=== PATIENT | male | born 1940 | race Caucasian/White ===

== ENCOUNTER 2016-05-28 09:30 | Inpatient (IN) | payer MEDICARE ==
--- NOTE | 2016-05-28 08:37 | HP ---
DATE OF CLINIC: 05/22/2016 ROSALES ROBLES : 1940 PLANNED PROCEDURE: Right Total Hip Arthroplasty Revision DATE OF SURGERY: May 28, 2016 SURGEON: Theo Sanchez M.D. PCP: Dr. Aleyda Mata HISTORY OF PRESENT ILLNESS Rosales Robles is a 76 year old male. * Medication list reviewed with patient allergy list reviewed with patient. 76-year-old male seen today preoperatively for upcoming right total hip acetabular revision. Patient is a patient of Dr. Sanchez's who underwent right hip revision of acetabulum on 10/23/15 for polyethylene wear. Unfortunately, he had 2 episodes; one small fall and another when he got his leg caught causing a rather significant increase in pain for about 2 days. It was noticed per x-ray series that the acetabulum has failed and is now rotated. He is here today preoperatively for upcoming revision of acetabulum. Dr. 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 Radiographs were obtained after a visit with Anders which I reviewed and I called the patient and his family back for discussion of this today. I saw him at the 6 week postop tab. At that time he was doing well. Subsequent to that he has had 2 episodes; one where he fell off of a rollator onto his buttocks and right side and a 2nd when he caught his leg on a car door with significant hip discomfort. He is ambulating with a cane. He feels that his strength is improved, although at times continues to struggle. He still feels that he is "much better off than before surgery". After discussion and review of treatment options and findings on exam, including operative and non-operative management, he has elected to proceed with revision arthroplasty and presents today preoperatively. He has had no recent illnesses. CURRENT MEDICATION * Amoxicillin 500 MG Tablet take 4 tabs orally 1 hour prior to all dental procedures due to joint replacement, 30 days, 2 refills * LamoTRIgine ER 250 MG Tablet Extended Release 24 Hour 1 once a day 0 days, 0 refills * LORazepam 0.5 MG Tablet as needed 1/2 to 1mg prn, 0 days, 0 refills * Lovastatin 20 MG Tablet once a day 0 days, 0 refills * Naproxen 500 MG Tablet 1 twice a day 0 days, 0 refills * Sertraline HCl 100 MG Tablet as directed 150mg-200mg daily, 0 days, 0 refills PAST MEDICAL/SURGICAL HISTORY Reported: Medical: Cholesterol problems. Stomach problems ulcers, bladder disease, joint problems Arthritis, a fracture Toe fracture 1984, cancer skin cancer, Reported numbness, Reported tingling, renal history, history of Arthritis, Depression, Vertigo, and Asthma. Surgical / Procedural: Surgical / procedural history scaling node 70 lung biopsy 70 lung biopsy 1968, removal of basal cell cancers 2008, scaling nodes removed 1968, plantar warts removed 1952, replacement of a hip Left hip 2004, Right hip 1993 or 1994, Right hip revision 10/23/[address] Sanchez, Appendectomy 1977, and Cholecystectomy 1995. Diagnoses: Osteoporosis. Depression Sarcoidosis 1968, acid reflux, gastritis, Sleep apnea. SOCIAL HISTORY Behavioral: Caffeine use and non-smoker quit smoking stopped smoking in 09/12/1994 after smoking half pack a day for 20 years off and on. Smoking status: Former smoker. Work: Occupation Retired. ALLERGIES * Dairy Products * Reglan Reaction: Nausea/Vomiting/Diarrhea * Sulfa Drugs Reaction: Skin Rashes/Hives FAMILY HISTORY Father at age 53 heart attack Mother at age 72 in sleep 1 children living 1 children REVIEW OF SYSTEMS Systemic: No fever and no recent weight change. Head: No head symptoms. Cardiovascular: No cardiovascular symptoms. Pulmonary: No pulmonary symptoms. Gastrointestinal: No gastrointestinal symptoms. Skin: No skin lesions and no rash. PHYSICAL FINDINGS * Vitals taken 05/22/2016 10:53 am BP-Sitting R 153/80 mmHg BP Cuff Size Regular Pulse Rate-Sitting 74 bpm Temp-Oral 97.6 F Height 67 in Weight 190 lbs Body Mass Index 29.8 kg/m2 Body Surface Area 1.98 m2 Pain Level 5 Ears, Nose, Throat: * ENT: normal. Lungs: * Clear to auscultation No wheezing, rhonchi. Cardiovascular: Heart Rate and Rhythm: * Normal Without murmur. Abdomen: * Normal Soft NT. Neurological: Motor: * Dominant Hand = Right Hand. Orthopedic exam of the lower extremity is unchanged; well-healed incision, motion is unchanged from his last exam with Dr. Sanchez. Please see his following note: He has significant asymmetric leg lengths. He has no tenderness about the hip. Motion however is fairly limited. He has 100 degrees of flexion, 30 degrees of abduction, ER to 30, IR just past neutral. Thigh is soft and NT. Cursory evaluation of the knee shows non-irritable motion. Calf is soft and NT. Distal light touch sensation and motor function are intact and symmetric. Pulses are palpable. Contralateral hip is non-irritable. TESTS Previous radiographs are reviewed with the patient and family. These show significant interval rotation of the acetabular component with verticalization and anteversion. No change in femoral component. 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 THERAPY * Patient fall risk screen positive. * Patient eligible for fall risk assessment. * Patient received fall risk assessment. PLAN * OTHER OxyCODONE HCl 5 MG TABS, 1or 2 tablets every 4 to 6 hours as needed-TO BE USED FOR AFTER SURGERY, 5 days, 0 refills * [facility] compl of internal right hip prosthesis, init encntr Physical Therapy: [facility] [phone] Right total hip arthroplasty revision. Discussed with patient in detail the limitations, expectations as well as risks and possible complications of surgery including, but not limited to wound problems or infection, neurovascular injury, continued hip pain or dysfunction, postop instability including the possibility of dislocation and/or postop leg length discrepancy, and the possibility of prosthetic wear or failure over time that may require additional operative or nonoperative treatment. Patient also realizes the perioperative risks including risks associated with anesthesia and would like to proceed. A full PAR conference was held, questions and concerns addressed and informed consent was obtained. Patient will be sent from my office for completion of the preoperative workup. Patient will use ECASA 325mg postoperatively for DVT prophylaxis. Patient would like to perform their postop PT at [facility] with total hip arthroplasty protocol. CARE TEAM Aleyda Mata MD [facility] TMR/sg
[~2016-05-28 09:30] MED LIST: CEFAZOLIN SODIUM 2 GRAM PREMIX 100 ML IV ONE; CEFAZOLIN SODIUM 2 GRAM PREMIX 100 ML IV PRN; CELECOXIB 200 MG CAPSULE PO ONE; CLONIDINE HCL 0.1 MG/24 HR (7 DAY PATCH) TD SCH; FAMOTIDINE 20 MG TABLET PO ONE; GABAPENTIN 600 MG TABLET PO ONE; IV START KIT ONE; ONDANSETRON 4 MG/2ML 2 ML VIAL IV ONE; OXYCODONE HCL 10 MG TAB.SR PO ONE; SODIUM CHLORIDE 0.9% 1,000 ML ONE; TRAMADOL HCL 50 MG TABLET PO ONE
[2016-05-28] MEDS ORDERED: OXYCODONE HCL 10 MG TAB.SR PO ONE (10:40)
[2016-05-28] MEDS ORDERED: TRAMADOL HCL 50 MG TABLET ONE (10:40)
[2016-05-28] MEDS ORDERED: ONDANSETRON 4 MG/2ML 2 ML VIAL ONE (10:40)
[2016-05-28] MEDS ORDERED: FAMOTIDINE 20 MG TABLET ONE (10:41)
[2016-05-28] MEDS ORDERED: GABAPENTIN 600 MG TABLET ONE (10:41)
[2016-05-28] MEDS ORDERED: CLONIDINE HCL 0.1 MG/24 HR (7 DAY PATCH) TD ONE (10:41)
[2016-05-28] MEDS ORDERED: CELECOXIB 200 MG CAPSULE ONE (10:41)
[2016-05-28] MEDS ORDERED: BUPIVACAINE 0.5% (PRES FREE) 30 ML VIAL ONE (11:06)
[2016-05-28] MEDS ORDERED: SPINAL PROCEDURAL TRAY 1 EACH ONE (11:06)
[2016-05-28] MEDS ORDERED: PROPOFOL 40 ML IV ONE (11:10)
[2016-05-28] MEDS ORDERED: POLYMYXIN B SULFATE 500,000 UNITS, BACITRACIN 25,000 UNITS in SODIUM CHLORIDE 3 L IRRIG... IR PRN (11:30)
[2016-05-28] MEDS ORDERED: TRANEXAMIC ACID 1,000 MG in SODIUM CHLORIDE 0.9% 100 ML IV PRN (11:30)
[2016-05-28] MEDS ORDERED: BUPIVACAINE 0.25% (MDV) 24 ML, MORPHINE SULFATE 8 MG, EPINEPHRINE 0.3 MG in SODIUM CHLO... IF PRN (11:30)
[2016-05-28] MEDS ORDERED: BUPIVACAINE 0.25% (MDV) 20 ML in SODIUM CHLORIDE 0.9% FLUSH 20 ML IF PRN (11:30)
[2016-05-28] MEDS ORDERED: MIDAZOLAM HCL 1 MG/ML 2ML VIAL ONE (11:34)
[2016-05-28] MEDS ORDERED: FENTANYL 100 MCG/2 ML VIAL ONE (11:34)
[2016-05-28] MEDS ORDERED: FENTANYL 100 MCG/2 ML VIAL IV PRN (12:39)
[2016-05-28] MEDS ORDERED: ATROPINE SULFATE 0.4 MG/1 ML VIAL IV PRN (12:39)
[2016-05-28] MEDS ORDERED: NALOXONE HCL 0.4 MG/ML VIAL IV PRN (12:39)
[2016-05-28] MEDS ORDERED: ONDANSETRON 4 MG/2ML 2 ML VIAL IV PRN ×2 (12:39→15:27)
[2016-05-28] MEDS ORDERED: EPHEDRINE SULFATE UD SYR 25 MG 25 MG/5 ML SYRINGE IV ONE ×2 (12:41→14:01)
[2016-05-28] MEDS ORDERED: SODIUM CHLORIDE 0.9% 1,000 ML IV SCH (12:45)
[2016-05-28] MEDS ORDERED: PROPOFOL 20 ML IV ONE ×2 (13:07→14:01)
--- NOTE | 2016-05-28 15:14 | PCMBPN ---
Brief Post Op Note: Date of Procedure: 05/28/16 Preoperative Diagnosis: failed right DARLEEN Postoperative Diagnosis: 1. [Same] Procedure: REvision right hip acetabular component Surgeon: Theo Sanchez MD Assist: Daysi (MITCHELL) Anesthesia: spinal (Bahrke) Condition: stable to PAR Complications: none IV Fluids: 2000 mLs of LR Urine Output: 90 mLs Estimated Blood Loss: 150 mLs Tourniquet Time: [N/A] Specimens: none Implants: continuum/manju Drains: none
[2016-05-28] MEDS ORDERED: KETOROLAC TROMETHAMINE 30 MG/ML 1 ML VIAL IV PRN (15:27)
[2016-05-28] MEDS ORDERED: CALCIUM CARBONATE 500 MG TAB.CHEW PO PRN (15:27)
[2016-05-28] MEDS ORDERED: HYDROMORPHONE HCL 0.5 MG/0.5 ML SYRINGE IV PRN (15:27)
[2016-05-28 15:39] VITALS: BMI 29.0
--- NOTE | 2016-05-28 15:45 | RAD ---
PELVIS COMPARISON: Pelvis and right hip, 05/03/2016 HISTORY: Revised right total hip arthroplasty with displaced acetabular component. FINDINGS: Views: AP pelvis. Bones: No change. Old avulsion fracture of the right lesser tuberosity. Joints: Revision of the right total hip arthroplasty with repositioning of the acetabular component and placement of 2 additional superior screws. No change in appearance of the left total hip arthroplasty. Soft tissues: Normal. IMPRESSION: 1. Successful revision of the right total hip arthroplasty with normal positioning of the acetabular component, now secured by 2 additional superior screws.
[2016-05-28] MEDS ORDERED: PUMP TUBING ONE (16:34)
[2016-05-28] MEDS: D5 1/2NS with 20 mEq KCL 1,000 ML IV SCH (16:44)
[2016-05-28] MEDS ORDERED: LORAZEPAM 0.5 MG TABLET PO PRN (17:27)
[2016-05-28] MEDS: CEFAZOLIN SODIUM 1 GRAM PREMIX 1 G in Premix (D5W) 50 ml 1 EACH IV SCH (17:54)
--- NOTE | 2016-05-28 18:36 | CONS ---
KWADWO ROBLES [id number] : 1940 DATE OF ADMISSION: May 28, 2016 DATE OF CONSULTATION: May 28, 2016 PRIMARY CARE PROVIDER: Aleyda Mata M.D. CONSULTATION REQUESTED BY: Theo Sanchez M.D. REASON FOR CONSULTATION: Perioperative medical management. CHIEF COMPLAINT: Failed right hip arthroplasty. HISTORY OF PRESENT ILLNESS: Mr. Robles is a 75-year-old who had his initial right hip arthroplasty in 1993. The acetabular component failed and he was seen October 23, 2015 at [facility] for a revision done by Dr. Sanchez. That went well but following the procedure he was discharged and then developed fever and altered mental status and returned for a three-day hospitalization. He was treated for possible pneumonia, although his chest x-ray was negative at the time. It may have just been excessive sedative medication effect combined with some postoperative atelectasis causing the fever. In any case, since that time he has had two events. One was a fall and another he got his leg caught in a car door and the acetabular component of the right hip has failed again. He presented today for repeat revision of the right total hip arthroplasty. Surgery was done under spinal anesthesia. Estimated blood loss was 150 mL. No drains or complications were noted. Patient is seen on the medical/surgical floor postoperatively. Most of the history is provided by his as the patient is still quite somnolent. He denies any significant postoperative symptoms. No pain, dyspnea, nausea, pruritus or other symptoms. PREOPERATIVE REVIEW OF SYSTEMS: No recent upper or lower respiratory symptoms. No cardiac symptoms. No gastrointestinal symptoms. No genitourinary symptoms. PAST MEDICAL HISTORY: 1. Pulmonary sarcoidosis in remission. 2. Obsessive-compulsive disorder and depression, well controlled on medications. 3. Obstructive sleep apnea treated with CPAP. 4. Dyslipidemia. 5. Irritable bowel syndrome. 6. History of gastritis. PAST SURGICAL HISTORY: 1. Lung biopsy in 1968. 2. Right hip arthroplasty in 1993. 3. Left hip arthroplasty in 2004. 4. Cystoscopy for hematuria with resection of benign tumor. 5. Appendectomy in the . 6. Cholecystectomy in the . 7. Right hip revision October 23, 2015. 8. Right hip revision today. ALLERGIES: REPORTED TO: 1. SULFA. 2. METOCLOPRAMIDE. HOME MEDICATIONS: 1. Lorazepam 1 mg at bedtime as needed. 2. Simethicone 125 mg orally four times daily. 3. Sildenafil 100 mg as needed. 4. Sertraline 2.5 mg orally daily. 5. Naprosyn 500 mg orally twice daily. 6. Maalox Plus as needed. 7. Lovastatin 20 mg daily. 8. Lamotrigine 2.5 mg orally daily. 9. Famotidine 25 mg orally twice daily. 10. Cholecalciferol 1000 units orally daily. 11. Librax capsules one four times daily. 12. Acetaminophen 650 orally every four hours as needed. HABITS: He is a former smoker with a ten pack-year history. Quit in 1994. Does not drink alcohol. SOCIAL HISTORY: He is a retired PhD summer clerk. Lives in [place] with his . They have one living son and a daughter who committed suicide. FAMILY HISTORY: Father of heart disease in his 50s. Mother in her sleep at the age of 72. PHYSICAL EXAMINATION: GENERAL: This is an overweight, elderly gentleman. He is somnolent. Rouses briefly. Does not show any distress. VITAL SIGNS: Oxygen saturation is 100% on room air, pulse is 55, blood pressure 135/68. HEENT: Pupils equal, round and reactive. Extraocular muscles are intact. Oropharynx is moist. LUNGS: Chest does show some crackles which I assume is his baseline with the history of sarcoidosis. HEART: Regular. No murmurs. ABDOMEN: Soft, nontender. Normal bowel tones. No organomegaly. EXTREMITIES: Dressing is clean and dry on the right hip. Good posterior tibial pulses. No edema. NEUROLOGIC: No focal deficits just somnolence from his anesthesia. PREOPERATIVE LABORATORY STUDIES: Labs done on May 20, 2016, showed mild anemia with a hemoglobin of 11.3 otherwise normal CBC. Normal prothrombin time and partial thromboplastin time. Normal chemistries and negative urinalysis. Nasal swab screening for methicillin resistant Staphylococcus aureus was negative. ELECTROCARDIOGRAM: Normal sinus rhythm. IMAGING: Preoperative chest x-ray on May 20, 2016 was normal. ASSESSMENT: Mr. Robles is a 76-year-old status post re-revision of right total hip arthroplasty. He has a history of pulmonary fibrosis, gastritis, irritable bowel syndrome, obstructive sleep apnea and obsessive-compulsive disorder. RECOMMENDATIONS: 1. Postoperative care per orthopedics. 2. Encourage regular use of incentive spirometry and minimizing sedative medications to avoid the complications he had six months ago. 3. Agree with aspirin for postoperative venous thromboembolism prophylaxis. 4. Continue outpatient medications for irritable bowel syndrome, gastritis, and obsessive-compulsive disorder. 5. Continue CPAP from home. Thank you, Dr. Sanchez, for this consultation. The hospitalist service will follow.
[2016-05-28] MEDS: DOCUSATE SODIUM 100 MG CAPSULE PO SCH (20:54)
[2016-05-28] MEDS: ACETAMINOPHEN 500 MG TABLET PO SCH (20:54)
[2016-05-28] MEDS: ASCORBIC ACID 500 MG TABLET PO SCH (20:54)
[2016-05-28] MEDS: FAMOTIDINE 20 MG TABLET PO SCH (20:54)
[2016-05-29] MEDS: D5 1/2NS with 20 mEq KCL 1,000 ML IV SCH ×2 (02:16→20:01)
[2016-05-29] MEDS: CEFAZOLIN SODIUM 1 GRAM PREMIX 1 G in Premix (D5W) 50 ml 1 EACH IV SCH (02:16)
[2016-05-29] MEDS: ACETAMINOPHEN 500 MG TABLET PO SCH ×4 (04:06→21:03)
[2016-05-29 06:08] LABS: HEMATOCRIT 23.9 % (32.0-52.0); HEMOGLOBIN 7.1 gm/l (14.0-18.0); MEAN CELL VOLUME 83.6 fl (80.0-94.0); MEAN CORPUSCULAR HEMOGLOBIN 24.8 pg (27.0-31.0); MEAN CORPUSCULAR HGB CONC 29.7 g/dl (33.0-37.0); RED CELL DISTRIBUTION WIDTH 15.9 % (11.5-14.5)
[2016-05-29] MEDS: ASPIRIN (ENTERIC COATED) 325 MG TABLET.EC PO SCH (09:05)
[2016-05-29] MEDS: DOCUSATE SODIUM 100 MG CAPSULE PO SCH ×2 (09:05→21:03)
[2016-05-29] MEDS: MULTIVITAMINS 1 TAB TABLET PO SCH (09:05)
[2016-05-29] MEDS: ASCORBIC ACID 500 MG TABLET PO SCH ×2 (09:06→21:03)
[2016-05-29] MEDS: CELECOXIB 200 MG CAPSULE PO SCH (09:06)
[2016-05-29] MEDS: LOVASTATIN 20 MG TABLET PO SCH (09:06)
[2016-05-29] MEDS: FAMOTIDINE 20 MG TABLET PO SCH ×2 (09:06→21:03)
[2016-05-29] MEDS ORDERED: REMOVE PATCH 1 EACH UNIT TD SCH (09:30)
[2016-05-29] MEDS ORDERED: SODIUM CHLORIDE 0.9% 500 ML IV PRN (10:18)
--- NOTE | 2016-05-29 10:32 | PDOC43 ---
- Subjective Chief Complaint: S/P right hip revision 05/28 Lightheaded when up to bathroom with OT, and hypotensive this a.m. Pain is well controlled. Consents to transfusion. - Objective Vital Signs Temperature 97.7 F 05/29/16 07:04 Pulse Rate 68 05/29/16 07:04 Respiratory Rate 16 05/29/16 08:00 Blood Pressure 99/44 05/29/16 07:04 O2 Saturation by Pulse Oximetry 100 05/29/16 07:04 Oxygen Delivery Method Nasal Cannula Oxygen Flow Rate 2 Intake and Output 05/28/16 05/29/16 05/30/16 06:59 06:59 06:59 Intake Total 3770 Output Total 1775 Balance 1994 General: Alert, Oriented x3, Cooperative, No Acute Distress HEENT: Mucous membr. moist/pink Lungs: Clear to Auscultation Bilaterally Cardiovascular: Regular Rate and Rhythm, Murmur (2/6) Abdomen: Soft, Normal Bowel Sounds, No Tenderness, No Masses Extremities: Normal Pulses, No Edema Wound: Dressing Clean/Dry/Intact (on right hip) Neurological: Normal Speech Psych/Mental Status: Normal Mood Laboratory 05/29/16 05:30 05/29/16 05/28/16 05:30 10:33 RBC 2.86 L MCH 24.8 L MCHC 29.7 L RDW 15.9 H Crossmatch See Detail Current Medications: Current meds reviewed in EMR. - Problems: Assessment/Plan (1) Status post revision of total hip replacement Status: AcuteAssessment/Plan: management per orthopedics, doing well. (2) Acute blood loss anemia Status: AcuteAssessment/Plan: due to surgery, transfuse 2 units PRBC and follow. (3) Depression Qualifiers: Depression Type: major depressive disorder Major depression recurrence : recurrent Active/Remission status: in full remission Qualifier Code: ( F33.42) Major depressive disorder, recurrent, in full remission Status: ChronicAssessment/Plan: stable (4) Dyslipidemia Status: ChronicAssessment/Plan: stable (5) Gastritis Status: ChronicAssessment/Plan: on famotidine, no symptoms (6) IBS (irritable bowel syndrome) Qualifiers: Irritable bowel syndrome type: unspecified Qualifier Code: (K58.9) Irritable bowel syndrome without diarrhea Status: ChronicAssessment/Plan: stable (7) Obsessive compulsive disorder Status: ChronicAssessment/Plan: stable (8) Obstructive sleep apnea Status: ChronicAssessment/Plan: use CPAP from home (9) Pulmonary sarcoidosis Status: ChronicAssessment/Plan: in remission VTE Prophylaxis: ASA Disposition: home in 1-2 days
[2016-05-29] MEDS ORDERED: BLOOD Y PLUMSET W/CASSETTE ONE ×2 (12:15→15:51)
[2016-05-29 13:14] LABS: CALCIUM 7.9 mg/dL (8.6-10.3)
[2016-05-29] MEDS: OXYCODONE HCL 5 MG TABLET PO PRN ×2 (13:23→22:29)
[2016-05-29] MEDS ORDERED: CHLORDIAZEPOXIDE PO PRN (14:00)
[2016-05-29] MEDS ORDERED: CLIDINIUM BR PO PRN (14:00)
[2016-05-29] MEDS ORDERED: REMOVE PATCH 1 EACH UNIT TD ONE (15:08)
[2016-05-29] MEDS ORDERED: MAGNESIUM HYDROXIDE 30 ML UDCUP PO PRN (15:08)
[2016-05-29] MEDS: CHLORDIAZEPOXIDE PO SCH ×2 (19:09→20:00)
[2016-05-29] MEDS: CLIDINIUM BR PO SCH ×2 (19:09→20:00)
[2016-05-29] MEDS: SERTRALINE HCL 100 MG TABLET PO SCH (19:14)
[2016-05-30] MEDS: OXYCODONE HCL 5 MG TABLET PO PRN (01:17)
[2016-05-30] MEDS: ACETAMINOPHEN 500 MG TABLET PO SCH ×3 (04:43→15:43)
[2016-05-30 06:34] LABS: HEMATOCRIT 28.3 % (32.0-52.0); HEMOGLOBIN 8.8 gm/l (14.0-18.0)
--- NOTE | 2016-05-30 08:33 | PDOC43 ---
- Subjective Findings: Ortho POD 2 Revision R DARLEEN acetabular cup and femoral head Patient awake, A and O times 4 this am, presently eating breakfast. Pain is well controlled. Denies CP/SOB/NV. Taking a regular diet and positive flatus. Expressed concerned about his blood pressure when up. Fairly good progress with PT yesterday bed exercises and ambulatory activity. Subjective: Denies Chest Pain, Denies Shortness of Breath, Denies Nausea, Denies Vomiting, Denies Fever - Objective Vital Signs Temperature 98.2 F 05/30/16 06:58 Pulse Rate 67 05/30/16 06:58 Respiratory Rate 14 05/30/16 06:58 Blood Pressure 99/51 05/30/16 06:58 O2 Saturation by Pulse Oximetry 96 05/30/16 06:58 Oxygen Delivery Method Room Air Oxygen Flow Rate 0 Laboratory 05/30/16 05:30 05/29/16 05:30 05/29/16 05/28/16 05:30 10:33 Estimated GFR 82 H Calcium 7.9 L Crossmatch See Detail Active Medication Orders Category Date Time Status Acetaminophen [Tylenol] Med 05/28/16 21:30 Active 1,000 mg PO Q6H Ascorbic Acid [Vitamin C] Med 05/28/16 21:00 Active 500 mg PO BID Aspirin (Enteric Coated) [Ecotrin] Med 05/29/16 09:00 Active 325 mg PO DAILY Bisacodyl [Dulcolax] Med 05/31/16 15:08 Active 10 mg PA DAILY PRN Calcium Carbonate [Tums] Med 05/28/16 15:27 Active 1,000 - 2,000 mg PO Q2H PRN Celecoxib [Celebrex] Med 05/29/16 09:00 Active 200 mg PO DAILY Chlordiazepoxide/Clidinium Br [Librax Capsule] Med 05/29/16 14:00 Active 1 cap PO QID PRN Docusate Sodium [Colace] Med 05/28/16 21:00 Active 100 mg PO BID Famotidine [Pepcid] Med 05/28/16 21:00 Active 20 mg PO BID Hydromorphone HCl [Dilaudid] Med 05/28/16 15:27 Active 0.5 mg IV Q1H PRN Lamotrigine [Lamictal] Med 05/29/16 09:00 Active 250 mg PO DAILY Lorazepam [Ativan] Med 05/28/16 17:27 Active 1 mg PO BEDTIME PRN Lovastatin [Mevacor] Med 05/29/16 09:00 Active 20 mg PO DAILY Magnesium Hydroxide [Milk of Magnesia] Med 05/29/16 15:08 Active 30 ml PO DAILY PRN Multivitamins [One-A-Day] Med 05/29/16 09:00 Active 1 tab PO DAILY Ondansetron 4 mg/2ml Vial [Zofran] Med 05/28/16 15:27 Active 4 - 6 mg IV Q6H PRN Oxycodone HCl [Roxicodone] Med 05/28/16 15:27 Active 5 - 10 mg PO Q4H PRN Sertraline HCl [Zoloft] Med 05/29/16 09:00 Active 250 mg PO DAILY Sodium Chloride 0.9% 500 ml Med 05/29/16 10:18 Active IV 25 mls/hr Sodium Chloride 0.9% Flush [Normal Saline 10ml Flush] Med 05/28/16 15:27 Active 10 - 50 ml IV PRN PRN Sodium Chloride 0.9% Flush [Normal Saline 10ml Flush] Med 05/28/16 17:00 Active 10 ml IV Q8HR Intake and Output 05/28/16 05/29/16 05/30/16 23:59 23:59 23:59 Intake Total 2100 3540 450 Output Total 1175 1300 1450 Balance 925 2240 -1000 Neurological: No Normal Gait (ambulating with walker post R DARLEEN) Peripheral Pulses: Right Posterior Tibialis: 1+, Right Dorsalis Pedis: 1+ - Right Lower Extremity Incision: Well Approximated (Aquacel dressing applied. mild perincisional swelling. Thigh and calf are SNT), No Dressing Saturated, No Shadow Drainage, No Drainage, No Erythema, No Rash Motor: Extensor Hallucis Longus: 5/5, Tibialis Anterior: 5/5, Gastrocnemius: 5/5 , Peroneals: 5/5, Quadriceps: 4/5 Gross Sensation to Light Touch: Present: Deep Peroneal Nerve, Superficial Peroneal Nerve, Medial Plantar Nerve, Lateral Plantar Nerve, Sural Nerve, Saphenous Nerve Motion: Supine AROM hip flexion to 50, abduction to 10 both with passive improvement. Ankle motion is full actively. - Problems (1) Status post revision of total hip replacement Status: AcuteAssessment/Plan: Ortho POD 2 Revision R DARLEEN - acetabular component and femoral head, patient doing well. 1. Continue anticoagulation with Aspirin 325mg daily for 6 weeks, pneumatic compression, TEDs, and mobility. 2. Continue pain management per written orders, call for modification. 3. Encourage bed exercises, incentive spirometry q hour when awake. 4. Continue PT/OT R DARLEEN protocol WBAT, posterior hip precautions. 5. Appreciate Hospitaltist's care for perioperative medical management. Surgical blood loss anemia improved following PRBC infusion. 6. Disposition: Monitor progress with PT/OT today and potential for discharge home this afternoon-evening. If not likely 05/31/16.
[2016-05-30] MEDS ORDERED: PANTOPRAZOLE SODIUM 40 MG VIAL IV SCH (09:00)
[2016-05-30] MEDS: LOVASTATIN 20 MG TABLET PO SCH (09:19)
[2016-05-30] MEDS: FAMOTIDINE 20 MG TABLET PO SCH (09:26)
[2016-05-30] MEDS: CELECOXIB 200 MG CAPSULE PO SCH (09:26)
[2016-05-30] MEDS: MULTIVITAMINS 1 TAB TABLET PO SCH (09:26)
[2016-05-30] MEDS: ASPIRIN (ENTERIC COATED) 325 MG TABLET.EC PO SCH (09:26)
[2016-05-30] MEDS: DOCUSATE SODIUM 100 MG CAPSULE PO SCH (09:26)
[2016-05-30] MEDS: SERTRALINE HCL 100 MG TABLET PO SCH (09:28)
[2016-05-30] MEDS: ASCORBIC ACID 500 MG TABLET PO SCH (09:28)
--- NOTE | 2016-05-30 09:42 | RAD ---
Exam: Portable chest COMPARISON: 05/20/2016, 10/26/2015 INDICATION: Vomiting, postop right DARLEEN. FINDINGS: A semierect AP lordotic view of the chest at 0933 hours demonstrates a cardiac silhouette which is within normal limits and stable. Mild prominence of the interstitial markings is again appreciated and unchanged. There is no focal airspace disease or pleural effusion. There is no free air under the diaphragm. Surgical clips are noted within the right upper quadrant. IMPRESSION: No acute pulmonary process.
[2016-05-30 12:58] VITALS: BP 120/66
--- NOTE | 2016-05-30 13:21 | PDOC43 ---
- Subjective Chief Complaint: S/P right hip revision 05/28 Had episode of vomiting this a.m. but feels much better now. Pain is minimal, no dyspnea, no faintness. - Objective Vital Signs Temperature 97.9 F 05/30/16 12:57 Pulse Rate 79 05/30/16 12:57 Respiratory Rate 16 05/30/16 12:57 Blood Pressure 120/66 05/30/16 12:57 O2 Saturation by Pulse Oximetry 96 05/30/16 12:57 Oxygen Delivery Method Room Air Oxygen Flow Rate 0 Intake and Output 05/29/16 05/30/16 05/31/16 06:59 06:59 06:59 Intake Total 3770 2320 800 Output Total 1775 1300 1150 Balance 1994 1020 -350 General: Alert, Oriented x3, Cooperative, No Acute Distress HEENT: Mucous membr. moist/pink Lungs: Clear to Auscultation Bilaterally Cardiovascular: Regular Rate and Rhythm Abdomen: Soft, Normal Bowel Sounds, No Tenderness, No Masses Extremities: Normal Pulses, No Edema Skin: Normal Color Neurological: Normal Speech Psych/Mental Status: Normal Mood Laboratory 05/30/16 05:30 05/29/16 05:30 05/29/16 05/28/16 05:30 10:33 Estimated GFR 82 H Calcium 7.9 L Crossmatch See Detail Current Medications: Current meds reviewed in EMR. - Problems: Assessment/Plan (1) Status post revision of total hip replacement Status: AcuteAssessment/Plan: management per orthopedics, doing well. (2) Acute blood loss anemia Status: AcuteAssessment/Plan: due to surgery, improved post transfusion (3) Depression Qualifiers: Depression Type: major depressive disorder Major depression recurrence : recurrent Active/Remission status: in full remission Qualifier Code: ( F33.42) Major depressive disorder, recurrent, in full remission Status: ChronicAssessment/Plan: stable (4) Dyslipidemia Status: ChronicAssessment/Plan: stable (5) Gastritis Status: ChronicAssessment/Plan: on famotidine, no symptoms (6) IBS (irritable bowel syndrome) Qualifiers: Irritable bowel syndrome type: unspecified Qualifier Code: (K58.9) Irritable bowel syndrome without diarrhea Status: ChronicAssessment/Plan: stable (7) Obsessive compulsive disorder Status: ChronicAssessment/Plan: stable (8) Obstructive sleep apnea Status: ChronicAssessment/Plan: use CPAP from home (9) Pulmonary sarcoidosis Status: ChronicAssessment/Plan: in remission VTE Prophylaxis: ASA Disposition: home this evening or tomorrow.
--- NOTE | 2016-05-31 07:29 | DS ---
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 HOSPITAL PROCEDURES: Revision right total hip arthroplasty. SURGEON: Theo Sanchez M.D. BRIEF HISTORY: Patient is a 76-year-old male with both clinical and radiographic evidence of loosening of his acetabular cup of his previous right total hip arthroplasty. For the full history please see the chart note. BRIEF HOSPITAL COURSE: Patient was admitted on May 28, 2016 Dr. Theo Sanchez performed a revision right total hip arthroplasty acetabular cup, femoral had and liner. Patient was moved to the recovery room in stable condition. They were given 4 doses of antibiotic for empiric coverage. DVT prophylaxis consisted of aspirin 325 mg daily for six weeks, pneumatic compression devices, JERRY hose and mobility. PT was instituted postop day 1 with right total hip arthroplasty protocol, weightbearing as tolerated. Their incision site remained benign, their vital signs remained stable and they remained neurally and vascularly intact through the duration of the stay. They were discharged home postop day, 2 to continue outpatient PT at [facility] with right total hip arthroplasty protocol, weightbearing as tolerated keeping total hip precautions in mind. Dr. Jimmy Keen was consulted to manage perioperative medical comorbidities. For his consultation please see the chart note. The patient did have some surgical blood loss anemia. That was stabilized after two units of BRBCs on May 29, 2016. This was completed by Dr. Keen for this consultation and procedure there, please see the chart note. DISCHARGE INSTRUCTIONS: 1. Keep the wound site clean and dry, change dressing daily or as needed. 2. Continue the use of JERRY hose bilaterally. 3. Ice pack over the wound site prn. 4. Continue total hip precautions. 5. Outpatient PT at [facility] with right total hip arthroplasty protocol, weightbearing as tolerated. MEDICATIONS: 1. Patient is to resume normal preop medications. 2. Anti-coagulation will be with aspirin, 325mg daily for 6 weeks. 3. Pain management will be with Oxycodone, 5mg 1-2 every 4 hours to 6 hours prn for breakthrough pain. The patient resumed his own naproxen. No, Celebrex. 4. Patient was also advised on utilization of a multi-vitamin with mineral daily as well as Vitamin C, 500mg, daily for 1 month. 5. Patient encouraged to take an iron supplement in the form of ferrous sulfate, 325mg daily for 4 weeks. 6. Colace, 100mg, b.i.d. until regular bowel movement. FOLLOW-UP: Please return to the clinic as scheduled for your first scheduled postop check. Prior to that point in time please call with any questions or concerns. Job [id number] CC: [facility] Kimo Cameron PT
[2016-05-31] MEDS ORDERED: BISACODYL 10 MG SUP PR PRN (15:08)
--- NOTE | 2016-06-03 14:39 | OP ---
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 SURGEON: Laura ASSIST: Cj STATON) ANESTHESIA: Spinal per Bahrke EBL: 150 cc URINE OUTPUT: 90 cc IVF REPLACEMENT: Per anesthesia, 2000 mL crystalloid DRAINS: None COMPLICATIONS: None HISTORY: Briefly, patient is a 76-year-old male s/p revision arthroplasty to his right hip last November. He has had 2 incidents; one a fall and the other catching his leg where he had increased pain. This has persisted and interfered with his progression of his rehab. Recent radiographs demonstrate instability of the acetabular component which is rotated and clearly failed. Recommendation to proceed with revision. For additional details, refer to previously dictated Preoperative History and Physical Exam. A full PAR conference was held, questions and concerns were addressed, and informed consent was obtained. PROCEDURE: The patient was taken to the operating room after placement of spinal anesthetic. He was placed in the lateral decubitus position on the operating room table and held with the peg board positioner. Jessica prominences were well padded and an axillary roll was placed. The hip girdle and lower extremity were then prepped and draped out in the usual sterile fashion. Preoperative IV antibiotics were given empirically. Intraoperative DVT prophylaxis consisted of bilateral mechanical foot pumps. Personal filtration suits were used as was a closed room environment. After sterile prep and drape a WHO timeout was performed. We utilized his previous incision. A posterolateral approach was utilized. We dissected through subcutaneous tissue curving proximal and posterior to the greater trochanter. We dissected through subcutaneous tissue through relatively thick fibrous tissue. This was down to the proximal IT band fascia and gluteus fascia. The tissue planes were identified. I split the gluteus fascia in line with the incision as well as the proximal aspect of the IT band and developed the plane. Tranexamic acid was infiltrated over 10 minutes prior to incision, 1 gram dose per protocol. A similar 2nd dose was given at initiation of closure. A deep self retaining field retractor was placed. Pseudo-capsular tissue remained intact. This was reflected off the greater trochanter and tagged for later repair. No purulent material or any areas of tissue questionability were encountered. There was obvious gross malposition at this point of the acetabular component. We were able to dislocate the hip and disimpacted the femoral head. There was a lot of scarring superiorly and posteriorly. We developed this bluntly. I inspected the femoral component debriding proximal fibrous tissue. There was no evidence to suggest any instability or failure on this side. We therefore translated the femur anteriorly exposing the acetabulum. This was grossly loose, obviously spinning around the previously placed screws. I disimpacted the acetabular liner using a cancellous screw technique as well as a small osteotome. We then removed the screws, apical hole cover and then removed the acetabular component. The underlying bone did have some areas of wear, what looked like anterior-superior fracture of the acetabular that had likely happened at the time of his described initial fall. This was un-united and just anterior to the bony acetabulum. This was completely detached and therefore removed. Also, posterior-inferiorly there was a cavitary defect. This was contained. At this time we reamed as large as possible up to a 63, which was a limit on our anterior-posterior positioning. I trialed this at approximately 45 degrees of abduction and 20 degrees of anteversion. I was happy with the overall fit and fill. We added 30cc of allograft chips with 1cc of [place] that was mixed on the back table and then after irrigation of the acetabulum, this was reverse reamed into the acetabular fossa. We then impacted the true acetabular component and then augmented it with 3 appropriately length 6.5 screws with excellent purchase. We then impacted the neutral cross-linked polyethylene liner. I trialed the femoral head, found that a 40mm +3.5 allowed for excellent soft tissue balance, improvement of the leg length discrepancy and good stability to greater than 70 degrees of IR at 90 degrees of flexion. Satisfied, we cleaned and dried the trunnion and the true femoral head was impacted. The hip was then reduced with stability as previously discussed. Satisfied, we turned our attention to closure. The wound was copiously irrigated with double antibiotic pulsatile lavage. The pseudo-capsular tissue was re-approximated to the gluteus medius insertion with interrupted #2 Vicryl. The proximal IT band and gluteus fascia were closed with interrupted Vicryl. The subcutaneous tissue was closed with interrupted 2-0 and 3-0 Vicryl and the skin was closed surgical clips. After closure of the fascial tissue our 1st periarticular injection was given as per protocol and then following closure our 2nd periarticular injection was given per protocol. A sterile Aquacel dressing was then applied, the patient was returned to the supine position, transferred to their hospital bed, and sent to the postoperative recovery room in stable condition. They tolerated the procedure well. Sponge, instrument, and needle count were correct. SOBEIDA/mrw CC: Aleyda Shelton PT
== END 2016-05-30 16:22 | disposition home or self-care (01) | DRG 467 ==
LOC: OR 09:30 → MS 16:01
PROVIDERS: ADMIT Orthopaedic Surgery; ATTEND Orthopaedic Surgery
PROC: 0SR904A Replacement of Right Hip Joint with Ceramic on Polyethylene Synthetic Substitute, Uncemented, Open Approach (ICD-10-PCS; principal; 2016-05-28)
PROC: 0SP909Z Removal of Liner from Right Hip Joint, Open Approach (ICD-10-PCS; 2016-05-28)
PROC: 0SUA09Z Supplement Right Hip Joint, Acetabular Surface with Liner, Open Approach (ICD-10-PCS; 2016-05-28)
PROC: 0SP90JZ Removal of Synthetic Substitute from Right Hip Joint, Open Approach (ICD-10-PCS; 2016-05-28)
PROC: 30233N1 Transfusion of Nonautologous Red Blood Cells into Peripheral Vein, Percutaneous Approach (ICD-10-PCS; 2016-05-29)
DX: T84.020A Dislocation of internal right hip prosthesis, initial encounter (principal); D62 Acute posthemorrhagic anemia; G47.33 Obstructive sleep apnea (adult) (pediatric); F42.8 Other obsessive-compulsive disorder; F33.42 Major depressive disorder, recurrent, in full remission; E78.5 Hyperlipidemia, unspecified; K29.50 Unspecified chronic gastritis without bleeding; K58.9 Irritable bowel syndrome, unspecified; Z96.642 Presence of left artificial hip joint; Z88.2 Allergy status to sulfonamides; Z88.8 Allergy status to other drugs, medicaments and biological substances; Z87.891 Personal history of nicotine dependence; Z91.81 History of falling; D86.0 Sarcoidosis of lung